=== PATIENT | female | born 1980 | race Caucasian/White ===

== ENCOUNTER 2016-11-09 15:57 | Inpatient (IN) ==
[2016-11-09] MEDS ORDERED: Ondansetron 4 MG/2 ML VIAL IVP PRN (17:13)
[2016-11-09] MEDS ORDERED: Naloxone 0.4 MG/ML INJ IVP PRN (17:13)
[2016-11-09] MEDS ORDERED: Famotidine 20 MG/2 ML VIAL IVP PRN (17:13)
[2016-11-09] MEDS ORDERED: Ringers Solution, Lactated 1,000 ML IVC SCH (17:15)
--- NOTE | 2016-11-09 17:18 | OB/GYN History & Physical ---
Date of Encounter: 11/09/16 Time of Encounter: 17:14 Assessment and Plan (1) 39 weeks gestation of Current visit: Yes Status: Acute admit for delivery (2) Chronic hypertension during , antepartum Current visit: Yes Status: Acute PIH labs (3) Advanced maternal age during in third trimester Current visit: Yes Status: Acute admitted for delivery (4) Gestational diabetes mellitus (GDM) affecting Current visit: Yes Status: Acute Serum glucose on admission Accuchecks prn History of Present Illness Chief complaint: LOF HPI: Ms. Sexton is a 36 year old female @ 39w2d presents to labor and delivery with questionable rupture of membranes. Patient denies any VB or contractions. Nitrazine was negative. However patient had BP's 150/90's. Patient has chronic HTN and takes Labetalol 200mg PO daily, Patient is AMA and is a Gestational Diabetic. Patient reports BS are staying below 120. Patient denies Headache, visual disturbances or epigastric pain. I discussed patient with Dr. Ghosh and decision was made to deliver patient at this time. Patient denies any questions or concerns. Past Med Surg Social Fam HX - Past Medical History Source: patient Medical history: hyperlipidemia, hypertension Psychiatric history: no psych history - Past Surgical History Surgical History: no surgical history - Social History Smoking Status: Current every day smoker Packs per day: .5 Smokeless Tobacco Status: No Alcohol use: none Drug use: none Current living situation: Home - Independent Activity Level: Independent ambulation Recent Out of Country Travel Within the Last 8 Weeks: No Exposure or Possible Exposure to Illness During Travel: No - Family History Mother Name: kiera macedo Hx Family Cardiac Disorders: Yes (htn) Hx Family Respiratory Disorders: Yes (copd) Hx Family Cancer: No Hx Family GI Disorders: No Hx Family Genitourinary Disorders: No Hx Family Endocrine Disorder: No Hx Family Musculoskeletal Disorders: No Hx Family Neuromuscular Disorders: No Hx Family Neurologic Disorders: No Hx Family HEENT Disorders: No Hx Family Autoimmune Disorders: No Hx Family Reproductive Disorders: No Hx Family Psychosocial Disorders: No Hx Family Medical Disorders: No Obstetrical History - Pregnancies : 4 Para: 1 Term: 1 : 0 Ab's: 2 Livin Medications and Allergies Labetalol HCl 200 mg PO DAILY 11/02/15 [History] Acetaminophen [Tylenol] 325 mg PO PRN PRN 07/24/16 [History] Pediatric Multivit Comb #25/FA [Flintstones Multivit Chew Tab] 300 mcg PO DAILY 07/24/16 [History] Ferrous Sulfate [Iron] 325 mg PO DAILY 11/09/16 [History] Allergies No Known Allergies Allergy (Verified 07/24/16 13:19) Review of System OB - Constitutional Constitutional ROS IM: no chills, no fever(s), no headache(s) - Cardiovascular Cardiovascular: no dyspnea, no edema, no lightheadedness, no palpitations, no pedal edema, no syncope - Respiratory Respiratory: no cough, no dyspnea - Gastrointestinal Gastrointestinal: no abdominal pain, no constipation, no cramping, no diarrhea, no heartburn, no nausea, no vomiting - Genitourinary Genitourinary: vaginal discharge, no abnormal vaginal bleeding, no dysuria, no urinary urgency, no vaginal odor, no vaginal pruritis Exam - Constitutional Constitutional: well developed, well nourished, no acute distress, average body habitus - HEENT HEENT: Normocephaly, Mucus Membranes Moist - Neck Neck exam: full ROM, supple - Lungs Respiratory exam: CTAB - Cardiovascular Cardiovascular exam: RRR, +S1, +S2 - Abdomen Abdomen: Present: bowel sounds normal, gravid, non tender - Extremities Extremities exam: full ROM, normal capillary refill, normal inspection Deep Tendon Reflex Grade: 2+ Normal - Cervix Dilation: 2 Effacement: 80 Station: -2 - Uterus Uterus exam: Present: normal size, normal contour - Anus/Rectum Anus/Rectum: Present: normal perianal skin - Comments Comments: FHR 145 bpm moderate variability +15x15 accels no decels noted. CAt. 1 tracing.Irregular contractions noted. Results All other labs normal. - VTE Reasons for not Prescribing Prophylaxis: Treatment not Indicated - Low risk for VTE
[2016-11-09] MEDS ORDERED: miSOPROStol 100 MCG TABLET PO STA (17:58)
[2016-11-09 18:02] LABS: Basophils % 0.3 %; Eosinophils # 0.1 K/mcL (0.0-0.6); Eosinophils % 0.9 %; Hematocrit 32.4 % (35.3-44.9); Hemoglobin 11.3 g/dL (11.5-15.4); Immature Granulocytes % 0.7 % (0-4); Lymphocytes # 2.4 K/mcL (0.6-4.6); Lymphocytes % 27.2 %; Mean Corpuscular HGB Conc 34.9 g/dL (31.6-35.5); Mean Corpuscular Volume 83.3 fL (83.0-100.0); Mean Platelet Volume 9.5 fL (9.4-12.4); Monocytes # 0.6 K/mcL (0.0-1.3); Monocytes % 7.4 %; Neutrophils # 5.5 K/mcL (1.6-8.9); Platelet Count 340 K/mcL (140-400); Red Blood Count 3.89 M/mcL (3.82-4.97); Red Cell Distribution Width 14.2 % (11.5-14.5); Segmented Neutrophils % 63.5 %
[2016-11-09 18:18] LABS: Alanine Aminotransferase 10 Units/L (0-55); Aspartate Amino Transferase 14 Units/L (5-34); BUN/Creatinine Ratio 14 (6-26); Blood Urea Nitrogen 8 mg/dL (7-20); Lactate Dehydrogenase 128 Units/L (159-327); Uric Acid 4.7 mg/dL (2.6-6.0); eGFR For African Americans > 60 (> 60); eGFR For Non-African Americans > 60 (> 60)
[2016-11-09] MEDS ORDERED: *HR* FentaNYL (PF) 100 MCG/2 ML VIAL EP ONE (23:14)
[2016-11-09] MEDS ORDERED: Bupivacaine-MPF 0.25% 10 ML VIAL EP ONE (23:14)
[2016-11-09] MEDS ORDERED: Epidural Premix (fent/bupiv) 110 ML EP SCH (23:15)
--- NOTE | 2016-11-09 23:31 | Anesthesia Evaluation PreOp ---
Date of Encounter: 11/09/16 Time of Encounter: 23:18 - Past History Planned Operation: labor epidural Cardiac History: HTN Pulmonary History: Smoker (smokes 1/2 ppd while . Smoker for 21 years, 1 -2 ppd.) [employer] History: Denies Any Significant HX Other Medical History: Other (gestational diabetes) Anesthesia History: No Prior Anesthetic Complications, Past Anesthesia (ORIF right radius/ulna, kidney stones, wisdom teeth. No family history of anesthetic problems.) : Yes Alcohol Use: none Drug use: none Medications and Allergies Labetalol HCl 200 mg PO DAILY 11/02/15 [History] Acetaminophen [Tylenol] 325 mg PO PRN PRN 07/24/16 [History] Pediatric Multivit Comb #25/FA [Flintstones Multivit Chew Tab] 300 mcg PO DAILY 07/24/16 [History] Ferrous Sulfate [Iron] 325 mg PO DAILY 11/09/16 [History] Allergies No Known Allergies Allergy (Verified 07/24/16 13:19) - Meds/Allergy Pre-op Review Medications Reviewed: Yes Allergies Reviewed: Yes Beta Blockers on Current Med List: Yes If Beta Blockers taken, Date/Time (Last Dose taken): 11/09/16 @ 0900 Anesthesia Results - Labs 11/09/16 17:50 11/09/16 17:50 Anesthesia Exam VSS Height: 5'3" Weight: 67kg NPO (# of Hours): 8 Pain Scale: 8 Pain Scale Used: Numeric (1 - 10) - HEENT Pupil (Motor): Pupils equal, EOMI Mallampati: II Teeth: Normal Oral Opening: Greater than 3 - [employer] LOC: Oriented [employer] Motor: Normal RUE, Normal LUE, Normal RLE, Normal LLE, Normal Face [employer] Sensory: Normal: RUE, LUE, RLE, LLE, Face - Cardiac Rhythm: Regular - Pulmonary Breath Sounds: bilateral Clear Respiratory Effort: Symmetrical Anesthesia Assess/Plan ASA Score: 3 Modified Ryley Scale for Level of Consciousness: Cooperative, oriented, and tranquil Anesthetic Plan: Regional Monitoring Plan: Standard Monitors
[2016-11-09] MEDS ORDERED: *HR* FentaNYL (PF) 100 MCG/2 ML VIAL ONE (23:35)
[2016-11-09] MEDS ORDERED: Epidural Premix (fent/bupiv) 110 ML EP ONE (23:36)
[2016-11-09] MEDS ORDERED: Bupivacaine-MPF 0.25% 10 ML VIAL ONE (23:36)
--- NOTE | 2016-11-10 00:04 | Anesthesia Procedures ---
Date of Encounter: 11/10/16 Time of Encounter: 23:38 Procedures: Anesthesia - Epidural/Spinal Patient ID/Chart reviewed: Yes Patient examined: Yes OB Eval: Gestational age: 39 OB Eval: : 4 OB Eval: Hx Para: 1 OB Eval: Dilated at (cm): 3 OB Eval: Contractions: Non-stressed pattern Consent Obtained: Yes Supplemental Oxygen: None/Room Air Site Prep: Aseptic Technique, Sterile prep and drape, Povidone-Iodine 1% Patient position: upright Local Anesthetic: Lidocaine 1% Amount of Local Anesthetic used: 3 Touhy Needle Gauge: 18 Touhy Needle Depth (cm): 5 Catheter Depth at Skin (cm): 15 Test Dose (1.5% Lido + Epi): Volume given (mls): 3 Test Dose Result: Negative Loading Dose: 0.25% Marcaine (mls): 8 Loading Dose: Fentanyl (mcg): 100 Loading Dose Administered: Thru Catheter Infusion Med: 0.125% Bupivacaine w/ 2 mcg/ml Fentanyl Infusion Rate (mls/hr): [address]: Tegaderm, Tape Interspace Used: L3-L4 Loss of Resistance (THANH): Yes Blood: No CSF: No Paresthesia: No Vitals + FHT's: VSS and FHTs stable throughout procedure.
--- NOTE | 2016-11-10 00:13 | OB Labor Progress Note ---
Date of Encounter: 11/10/16 Time of Encounter: 00:11 Labor Progress Note - Subjective Subjective: Patient resting comfortable with epidural in place. Discussed POC with patient. Patient denies any questions or concerns. - Cervix Cervix: 3/80/-2 - Heart Tones Heart Tones: 145 bpm moderate variability +15x15 accels no decels noted. - Mimbres Mimbres: 3-4 min apart - Interventions Interventions: SVE, AROM. Moderate amount of clear fluid. IUPC placed without difficulty. Patient tolerated well. - Plan Plan: Continue labor management. Will start Pitocin if inadequate labor pattern
[2016-11-10] MEDS: Oxytocin 20 units/ LR 1000 mL 20 UNIT/1,000 ML BAG IVC SCH ×3 (01:23→10:51)
[2016-11-10] MEDS ORDERED: *HR* FentaNYL (PF) 100 MCG/2 ML VIAL ONE (05:23)
[2016-11-10] MEDS ORDERED: Bupivacaine-MPF 0.25% 10 ML VIAL ONE (05:23)
--- NOTE | 2016-11-10 05:33 | Anesthesia Progress Note ---
Date of Encounter: 11/10/16 Time of Encounter: 05:20 Anesthesia Note - Note Note: 11/10/16 05:31 called to LDR 12 for complaints of lower abdomen pain 11/22. Redosed working epidural that has not migrated with 0.25% bupivacaine 8ml and 100 mcg fentanyl in 3 divided doses. Patient tolerated well, VSS throughout.
[2016-11-10] MEDS ORDERED: Epidural Premix (fent/bupiv) 110 ML EP ONE (06:13)
[2016-11-10] MEDS ORDERED: Lidocaine 1% 20 ML MDV ONE (08:37)
--- NOTE | 2016-11-10 08:52 | OB/GYN Procedure Note ---
Delivery - Delivery Date: 11/10/16 Provider: Johny Ghosh Intrapartum events: none Delivery induction: oxytocin, misoprostol Delivery augmentation: rupture of membranes Delivery monitor: external FHT, internal uterine Anesthesia: epidural Estimated Blood Loss: 200 - Infant (s) Infant A Delivery Date: 11/10/16 Delivery Time: 08:32 Presentation: vertex Position: AMBIKA Gender: Male Viability: Viable Weight Gram: 3.385 kg at 1 minute: 8 at 5 mins: 9 Shoulder Dystocia: not encountered Specimens collected: cord blood Cord: nuchal cord, 3 umbilical vessels - Repair Laceration Description: Perineal - 2nd Degree - Complications Delivery complications: none - Disposition Mom disposition: stable in LDR [place] [address] disposition: stable in LDR - Comments Comments: Pt s/p of liveborn male infant.
[2016-11-10] MEDS ORDERED: Ibuprofen 600 MG TABLET PO PRN (10:45)
[2016-11-10] MEDS ORDERED: Prenatal Vit/FA 1 EACH TABLET PO SCH (11:56)
[2016-11-10] MEDS ORDERED: Oxytocin 20 units/ LR 1000 mL 20 UNIT/1,000 ML BAG IVC SCH (11:56)
[2016-11-10] MEDS ORDERED: Measles/Mumps/Rubella Vacc 0.5 ML VIAL SQ PRN (11:56)
[2016-11-10] MEDS ORDERED: Acetaminophen 325 MG TABLET PO PRN (11:56)
[2016-11-10] MEDS ORDERED: Rho Immune Globulin 1,500 UNIT SYRINGE IM PRN (11:56)
[2016-11-10] MEDS: Ibuprofen 600 MG TABLET PO PRN ×2 (12:04→20:11)
[2016-11-11 08:07] LABS: Basophils % 0.2 %; Eosinophils # 0.2 K/mcL (0.0-0.6); Eosinophils % 1.4 %; Hematocrit 26.9 % (35.3-44.9); Immature Granulocytes % 0.6 % (0-4); Lymphocytes # 1.9 K/mcL (0.6-4.6); Lymphocytes % 15.2 %; Mean Corpuscular HGB Conc 33.8 g/dL (31.6-35.5); Mean Corpuscular Hemoglobin 28.9 pg (28.0-33.3); Mean Corpuscular Volume 85.4 fL (83.0-100.0); Mean Platelet Volume 10.2 fL (9.4-12.4); Monocytes # 0.8 K/mcL (0.0-1.3); Monocytes % 6.1 %; Neutrophils # 9.7 K/mcL (1.6-8.9); Platelet Count 283 K/mcL (140-400); Red Blood Count 3.15 M/mcL (3.82-4.97); Red Cell Distribution Width 14.6 % (11.5-14.5); Segmented Neutrophils % 76.5 %
[2016-11-11 08:08] LABS: Hemoglobin 9.1 g/dL (11.5-15.4)
--- NOTE | 2016-11-11 08:32 | Discharge Summary ---
Date of Encounter: 11/11/16 Time of Encounter: 08:29 - Discharge Diagnosis (1) Vaginal delivery Priority: Primary Status: Acute Comments: Pt meeting milestones. (2) anemia Priority: Secondary Status: Acute Comments: Discharge home on iron. (3) Mother currently breast-feeding Priority: Secondary Status: Acute Comments: Rx breastpump (4) Chronic hypertension during , antepartum Priority: Secondary Status: Acute Comments: BP well controlled with labetalol. Pt already has appt scheduled with PCP for medication management. (5) Gestational diabetes mellitus (GDM) affecting Priority: Secondary Status: Acute Comments: Pt will need 2 hour GTT in 6 weeks. - Discharge Medications Prescriptions: Ibuprofen [Motrin] 600 mg PO Q6HR PRN #30 tablet PRN Reason: Cramping Breast Pump [BREAST PUMP] 1 each .ROUTE AD #1 each Docusate [Colace] 100 mg PO BID #60 capsule Ferrous Sulfate 325 mg PO DAILY #30 tablet Home Medications: Labetalol HCl 200 mg PO DAILY 11/02/15 [History] Pediatric Multivit Comb #25/FA [Flintstones Multivit Chew Tab] 300 mcg PO DAILY 07/24/16 [History] Ferrous Sulfate [Iron] 325 mg PO DAILY 11/09/16 [History] Breast Pump [BREAST PUMP] 1 each .ROUTE AD #1 each 11/11/16 [Rx] Docusate [Colace] 100 mg PO BID #60 capsule 11/11/16 [Rx] Ferrous Sulfate 325 mg PO DAILY #30 tablet 11/11/16 [Rx] Ibuprofen [Motrin] 600 mg PO Q6HR PRN #30 tablet 11/11/16 [Rx] Allergies/Adverse Reactions: Allergies No Known Allergies Allergy (Verified 07/24/16 13:19) Data Procedures and tests throughout hospitalization: Laboratory Tests 11/09/16 11/09/16 11/09/16 17:50 17:50 17:50 WBC 8.6 RBC 3.89 Hgb 11.3 L Hct 32.4 L MCV 83.3 MCH 29.0 MCHC 34.9 RDW 14.2 Plt Count 340 MPV 9.5 Immature Gran % 0.7 Seg Neutrophils % 63.5 Lymphocytes % 27.2 Monocytes % 7.4 Eosinophils % 0.9 Basophils % 0.3 Neutrophils # 5.5 Lymphocytes # 2.4 Monocytes # 0.6 Eosinophils # 0.1 Basophils # 0.0 BUN 8 Creatinine 0.59 Est GFR ( Amer) > 60 Est GFR (Non-Af Amer) > 60 BUN/Creatinine Ratio 14 Glucose 72 Uric Acid 4.7 AST 14 ALT 10 Lactate Dehydrogenase 128 L Screen Baby's Blood Type Mother's Blood Type Rhogam Indicated Rhogam Req for Mother 11/10/16 11/11/16 08:54 07:17 WBC 12.7 H RBC 3.15 L Hgb 9.1 L D Hct 26.9 L MCV 85.4 MCH 28.9 MCHC 33.8 RDW 14.6 H Plt Count 283 MPV 10.2 Immature Gran % 0.6 Seg Neutrophils % 76.5 Lymphocytes % 15.2 Monocytes % 6.1 Eosinophils % 1.4 Basophils % 0.2 Neutrophils # 9.7 H Lymphocytes # 1.9 Monocytes # 0.8 Eosinophils # 0.2 Basophils # 0.0 BUN Creatinine Est GFR ( Amer) Est GFR (Non-Af Amer) BUN/Creatinine Ratio Glucose Uric Acid AST ALT Lactate Dehydrogenase Screen NEGATIVE Baby's Blood Type O RH POSITIVE Mother's Blood Type A RH NEGATIVE Rhogam Indicated YES Rhogam Req for Mother 1 Labs on day of discharge: Labs from last 24 hours 11/11/16 11/10/16 07:17 08:54 WBC 12.7 H RBC 3.15 L Hgb 9.1 L D Hct 26.9 L MCV 85.4 MCH 28.9 MCHC 33.8 RDW 14.6 H Plt Count 283 MPV 10.2 Immature Gran % 0.6 Seg Neutrophils % 76.5 Lymphocytes % 15.2 Monocytes % 6.1 Eosinophils % 1.4 Basophils % 0.2 Neutrophils # 9.7 H Lymphocytes # 1.9 Monocytes # 0.8 Eosinophils # 0.2 Basophils # 0.0 Screen NEGATIVE Baby's Blood Type O RH POSITIVE Mother's Blood Type A RH NEGATIVE Rhogam Indicated YES Rhogam Req for Mother 1 Date of admission: 11/09/16 15:57 Primary care physician: Nava Vargas CNP Consults: 11/10/16 11:56 Consult to [employer] [CONS] Routine Comment: Vaginal delivery, consult needed Discharging clinician: Lissa Cox Anticipated date of discharge: 11/11/16 - Patient Status Disposition: Home, Self-Care Condition: Good Functional capacity at discharge: independent ambulation Overall status at discharge: patient is progressing back to baseline - Discharge Instructions Follow Up With: Nava Vargas CNP [Primary Care Provider] - Johny Ghosh MD [Partnered Physician] - - Diet and Activity Activity: increase activity as tolerated Diet: advance to your usual diet Hospital Course Reason for admission: induction of labor Delivery: Episiotomy: none Laceration: 2nd degree Other procedures: none complications: none Discharge diagnosis: IUP at term delivered [place] baby: male Hospital course: - Delivery Date: 11/10/16 Provider: Johny Ghosh Intrapartum events: none Delivery induction: oxytocin, misoprostol Delivery augmentation: rupture of membranes Delivery monitor: external FHT, internal uterine Anesthesia: epidural Estimated Blood Loss: 200 - Infant (s) Infant A Infant Delivery Date: 11/10/16 Infant Delivery Time: 08:32 Presentation: vertex Position: AMBIKA Gender: Male Viability: Viable Weight Gram: 3.385 kg at 1 minute: 8 at 5 mins: 9 Shoulder Dystocia: not encountered Specimens collected: cord blood Cord: nuchal cord, 3 umbilical vessels - Repair Laceration Description: Perineal - 2nd Degree - Complications Delivery complications: none - Disposition Mom disposition: home PPD#1 [place] disposition: home with mother, Time Attestation: Total time spent providing and/or coordinating discharge services: Time Spent: Less than 30 minutes Exam - Constitutional Vitals: Temp Pulse Resp BP Pulse Ox 98.4 F 93 16 137/76 98 11/11/16 02:20 11/11/16 02:20 11/11/16 02:20 11/11/16 02:20 11/11/16 02:20 General appearance IM: A&O X 3 - Respiratory Respiratory exam: Present: CTAB - Cardiovascular Cardiovascular exam IM: Present: RRR, +S1, +S2 - GI/Abdominal GI/Abdominal exam IM: soft - Uterine Tone: Firm Uterus Position: 1 Finger Below Umbilicus - Extremities Exam Extremities exam IM: Present: normal inspection - Neurological Exam Neurological exam: normal gait, oriented X3 - Psychiatric Additional comments: reports good mood
[2016-11-11 10:08] VITALS: BP 146/87
== END 2016-11-11 13:54 | disposition home or self-care (01) ==
LOC: 1NENULAB → OBSVTOIN 15:57 → 1NENUOBS 11-10 11:54
PROVIDERS: ADMIT Obstetrics & Gynecology; ATTEND Obstetrics & Gynecology

== ENCOUNTER → 2020-10-21 10:09 | Observation (INO) ==
[2020-10-20 23:36] LABS: Basophils % 0.3 %; Eosinophils # 0.2 K/mcL (0.0-0.6); Eosinophils % 1.5 %; Hematocrit 28.5 % (35.3-44.9); Hemoglobin 8.4 g/dL (11.5-15.4); Immature Granulocytes % 0.6 % (0-4); Lymphocytes # 2.6 K/mcL (0.6-4.6); Lymphocytes % 20.3 %; Mean Corpuscular HGB Conc 29.5 g/dL (31.6-35.5); Mean Corpuscular Volume 74.6 fL (83.0-100.0); Mean Platelet Volume 9.6 fL (9.4-12.4); Monocytes # 0.9 K/mcL (0.0-1.3); Monocytes % 7.2 %; Neutrophils # 8.8 K/mcL (1.6-8.9); Platelet Count 445 K/mcL (140-400); Red Blood Count 3.82 M/mcL (3.82-4.97); Red Cell Distribution Width 20.7 % (11.5-14.5); Segmented Neutrophils % 70.1 %; White Blood Count 12.6 K/mcL (4.3-11.1)
[2020-10-20 23:45] LABS: Amphetamine Screen,Urine Negative ng/mL (Cutoff=1000); Barbiturate Screen,Urine Negative ng/mL (Cutoff=200); Benzodiazepines Screen,Urine Negative ng/mL (Cutoff=200); Cannabinoid Screen,Urine Negative ng/mL (Cutoff = 50); Cocaine Screen,Urine Negative ng/mL (Cutoff= 300); Opiate Screen,Urine Negative ng/mL (Cutoff=300); Phencyclidine Screen,Urine Negative ng/mL (Cutoff=25)
[2020-10-20 23:46] LABS: Creatinine,Urine 34 mg/dL
[2020-10-20 23:47] LABS: Bacteria,Urine Few per hpf (None-Few); Bilirubin,Urine Negative (Negative); Blood,Urine Negative (Negative); Clarity,Urine Clear (Clear); Color,Urine Colorless (Yellow); Glucose,Urine (UA) Normal (Normal); Ketones,Urine Negative (Negative); Leukocyte Esterase,Urine Negative (Negative); Mucus,Urine Few per lpf (None-Few); Nitrite,Urine Negative (Negative); Protein,Urine Negative (Neg-Trace); RBC,Urine 0-3 per hpf (0-3); Specific Gravity,Urine 1.006 (1.010-1.025); Squamous Epithelial Cell,Urine Few per hpf (None-Few); Urobilinogen,Urine Normal (Normal); WBC,Urine 0-3 per hpf (0-3)
[2020-10-20 23:53] LABS: Alanine Aminotransferase 7 Units/L (7-52); Aspartate Amino Transferase 10 Units/L (13-39); BUN/Creatinine Ratio 12 (6-26); Blood Urea Nitrogen 7 mg/dL (6-20); Lactate Dehydrogenase 113 Units/L (140-271); Uric Acid 4.8 mg/dL (2.3-7.6); eGFR For African Americans > 60 (> 60); eGFR For Non-African Americans > 60 (> 60)
[2020-10-21 00:22] LABS: Rubella IgG Antibody POSITIVE (POSITIVE); Varicella Zoster IgG Antibody Positive
[2020-10-21 03:41] LABS: Hepatitis B Surface Antigen Nonreactive (Nonreactive)
[2020-10-21 04:10] LABS: HIV-1&2 Antibody & p24 Ag Nonreactive (Nonreactive)
[~2020-10-21 10:09] MED LIST: *HR* Labetalol 20 MG/4 ML SYRINGE IVP ONE; Acetaminophen 325 MG TABLET PO PRN; Famotidine 20 MG/2 ML VIAL IVP ONE
== END | disposition home or self-care (01) ==
LOC: 1NENULAB
PROVIDERS: ADMIT Advanced Practice Midwife; ATTEND Advanced Practice Midwife